=== PATIENT | male | born 1980 | race Caucasian/White ===

== ENCOUNTER 2021-10-16 19:29 | Emergency (ER) | payer SELFPAY ==
[~2021-10-16] VITALS: Ht 180.3 cm; Wt 158.8 kg
--- NOTE | 2021-10-16 19:37 | NUR ---
BIBS C/O "ITCHY EYES, MORE SO THE LEFT" WITH LEFT EAR PAIN X1 WEEK. -N/V. CLEAR EYES USED INSTRUCTIONAL DESIGN SPECIALIST. PT A/OX3. TOLERATING R/A WELL WITH NO SOB. CONNECTED PT TO POX AND MONITOR.
--- NOTE | 2021-10-16 19:46 | NUR ---
POC ACCMARCIA 83; REPORTED TO EROS CASTELLON
[2021-10-16 19:49] VITALS: BP 157/102
[2021-10-16] MEDS ORDERED: PSEU120T57 PO (19:53)
[2021-10-16] MEDS ORDERED: AMOX-430 PO (19:53)
[2021-10-16] MEDS ORDERED: CIPR5DRO EACHEYE (19:53)
[2021-10-16] MEDS ORDERED: IBUP-1955 PO (19:57)
--- NOTE | 2021-10-16 20:08 | NUR ---
Patient discharged to home in stable condition. Written and verbal after care instructions given by Facundo CASTELLON. Patient verbalizes understanding of instruction. PT ambulatory with a steady gait
== END 2021-10-16 20:12 | disposition home or self-care (01) ==
LOC: ER 19:32
DX: H66.012 Acute suppurative otitis media with spontaneous rupture of ear drum, left ear (principal); H10.9 Unspecified conjunctivitis; J01.90 Acute sinusitis, unspecified; E66.01 Morbid (severe) obesity due to excess calories; Z68.42 Body mass index [BMI] 45.0-49.9, adult; Z60.2 Problems related to living alone
CPT/HCPCS: 82962-TC